=== PATIENT | male | born 1955 | race Caucasian/White ===

== ENCOUNTER 2021-06-27 01:24 | Day surgery (SDC) | payer OTHER, SELFPAY ==
[2021-06-16 15:11] VITALS: BMI 23.5
[2021-06-27 07:40] VITALS: BP 122/75; PULSE 78; RESP 18; TEMP 36; O2SAT 97; BMI 22.2
[2021-06-27] MEDS: LACTATED RINGERS 1,000 ML 150 ML IV CONT (08:05)
--- NOTE | 2021-06-27 08:48 | PM.HPGS ---
History of Present Illness History of Present Illness Consent: Risks, benefits, and alternatives have been discussed and questions answered. Patient agrees to proceed with procedure. Chief complaint: neoplasm screening Narrative: Jules Montano is a 65 year old male here for screening colonoscopy, last one about 15 years ago. Review of Systems Constitutional: Constitutional: Denies headache(s) and Denies weakness Eyes: Eyes: Denies blurry vision ENT: Reports Normal hearing present, Denies headache(s) and Denies neck pain Cardiovascular: Cardiovascular: Denies chest pain and Denies dyspnea Respiratory: Respiratory: Denies dyspnea Gastrointestinal: Gastrointestinal: Reports no additional gastrointestinal complaints Genitourinary: Genitourinary: Denies dysuria Musculoskeletal: Musculoskeletal: Denies neck pain Integumentary/Breasts: Skin/Breast: Denies dry skin Neurologic: Reports Normal hearing present, Denies headache(s) and Denies weakness Psychiatric: Psychiatric: Denies anxiety Endocrine: Endocrine: Denies change in body appearance Hematologic/Lymphatic: Hematologic/Lymphatic: Denies easy bleeding Allergic/Immunologic: Allergic/Immunologic: Denies urticaria PMFSH Past Medical History Medical History (Updated 06/27/21 @ 08:49 by Jose R Louis MD) Colon cancer screening Social History Social History Smoking status: Current some day smoker Tobacco type: cigarettes Alcohol intake: current Drinks per week: 14 Substance use: never Substance use type: does not use Living arrangements: with family Spiritual care concerns: No Meds Home Medications and Allergies Home Medications Medication Instructions Recorded Confirmed Type diclofenac sodium 75 mg PO DAILY 06/16/21 06/27/21 History lorazepam 1 mg PO DAILY 06/16/21 06/27/21 History sertraline 100 mg PO DAILY 06/16/21 06/27/21 History Allergies Allergy/AdvReac Type Severity Reaction Status Date / Time Sulfa (Sulfonamide Allergy Unknown Verified 06/27/21 07:50 Antibiotics) Vital Signs Vital Signs - 24 hr 06/27/21 07:40 Temperature 96.8 F L Pulse Rate 78 Respiratory Rate 18 Blood Pressure 122/75 Pulse Oximetry 97 Exam Const: General: comfortable and no acute distress HENMT: General nose exam: Normal nares present Eyes: General: appearance normal, both eyes and all related structures Neck: Neck: no JVD Resp: Auscultation: clear to auscultation bilaterally Cardio: Rate: regular rate Rhythm: regular rhythm GI: Inspection: non-distended GI Palp: Yes Soft to palpation Skin: General skin exam: normal color Neuro: General: gait normal Speech: normal speech Extrem: General: normal to inspection Psych: Mental Status: mental status grossly normal Assessment and Plan Assessment and plan (1) Colon cancer screening: Code(s): Z12.11 - Encounter for screening for malignant neoplasm of colon Status: Acute Assessment and Plan: colonoscopy
--- NOTE | 2021-06-27 08:54 | WPDANESEPPF ---
Anes - Initial Pre Proc Eval Procedure: Operation Date: 06/27/21 09:00 Proposed Procedures p Screening Colonoscopy - Jose R Louis MD Date/Time: 06/27/21 08:54 Surgeon: Jose R Louis MD Pre Op Diagnosis: neoplasm screening Patient Data Age: 65 Gender: M Height: 1.7 m Weight: 64.5 kg Last Vital Signs Temp 96.8 F L 06/27/21 07:40 Pulse 78 06/27/21 07:40 Resp 18 06/27/21 07:40 BP 122/75 06/27/21 07:40 Pulse Ox 97 06/27/21 07:40 Allergies Allergy/AdvReac Type Severity Reaction Status Date / Time Sulfa (Sulfonamide Allergy Unknown Verified 06/27/21 07:50 Antibiotics) Home Medications Medication Instructions Recorded Confirmed Type diclofenac sodium 75 mg PO DAILY 06/16/21 06/27/21 History lorazepam 1 mg PO DAILY 06/16/21 06/27/21 History sertraline 100 mg PO DAILY 06/16/21 06/27/21 History Patient hx anesthesia problems: none Family hx anesthesia problems: none Results Review: All pre-operative results and documents have been reviewed as part of the pre-operative evaluation. [facility] Past Medical History Medical History (Updated 06/27/21 @ 08:49 by Jose R Louis MD) Colon cancer screening Social History Social History Smoking status: Current some day smoker Tobacco type: cigarettes Alcohol intake: current Drinks per week: 14 Substance use: never Substance use type: does not use Living arrangements: with family Spiritual care concerns: No Anes - Eval Final PreProcedure Day of Procedure 06/27/21 08:54 Patient weight: normal Heart: regular rate and rhythm Lungs: clear to auscultation Airway: Mallampati scale class II Neurological: alert and oriented Last oral intake: >/= 8 hours ASA classification: II Emergent: no Anesthetic plan: proceed Anesthesia type and monitoring: general GIVS and standard monitoring Results Review: All pre-operative results and documents have been reviewed as part of the pre-operative evaluation. Informed Consent: The patient's anesthetic plan and its attendant risks and benefits were discussed with the patient/family/POA. Questions were solicited and answers provided to the satisfaction of the patient/family/POA.
[2021-06-27 09:10] VITALS: BP 98/64; PULSE 65; RESP 16; O2SAT 97
[2021-06-27 09:20] VITALS: BP 111/77; PULSE 60; RESP 21; O2SAT 98
[2021-06-27 09:30] VITALS: BP 115/76; PULSE 57; RESP 17; O2SAT 99
== END 2021-06-27 09:40 | disposition home or self-care (01) ==
PROVIDERS: PCP Family Medicine Adolescent Medicine; Visit Provider Internal Medicine Gastroenterology
PROC: 0DJD8ZZ Inspection of Lower Intestinal Tract, Via Natural or Artificial Opening Endoscopic (ICD-10-PCS; CPT 45378; principal; 2021-06-27 09:00)
DX: Z12.11 Encounter for screening for malignant neoplasm of colon (principal); K57.30 Diverticulosis of large intestine without perforation or abscess without bleeding; K64.8 Other hemorrhoids; F17.210 Nicotine dependence, cigarettes, uncomplicated
CPT/HCPCS: 45378; J2704; J7120

== ENCOUNTER → 2021-12-27 16:37 | Outpatient (CLI) | payer OTHER, SELFPAY ==
--- NOTE | ~2021-12-27 | XR_ITS ---
EXAMINATION: XR chest 2V 12/27/2021 16:49 INDICATION: Cough PROCEDURE: 2 view chest COMPARISON: No prior studies for comparison. FINDINGS: The lungs are clear. The cardiomediastinal silhouette is within normal limits. There are no pleural effusions. There is no pneumothorax suspected. Small left pleural effusion. The lungs ar e hyperinflated which is consistent with, but not diagnostic of chronic obstructive pulmonary disease . IMPRESSION: 1: Small left pleural effusion. Reviewed, dictated and finalized at location A.
== END ==
PROVIDERS: PCP Family Medicine Adolescent Medicine; Visit Provider Physician Assistant
DX: R05.9 Cough, unspecified (principal); J90 Pleural effusion, not elsewhere classified
CPT/HCPCS: 71046

== ENCOUNTER 2023-10-16 11:23 | Outpatient (CLI) | payer MEDICARE, SELFPAY ==
--- NOTE | ~2023-10-16 | XR_ITS ---
Clinical Indication: Cough PA and lateral views of the chest: Comparison: 12/27/2021 Findings: The lungs are clear, without evidence of focal consolidation or pleural effusion. Stable ca lcified right hilar lymph nodes. Cardiomediastinal silhouette is within normal limits. Bones and soft tissues are unremarkable. Impression: No acute abnormality. Reviewed, dictated and finalized at location . MANAGER Impression: No acute abnormality.
== END 2023-10-16 11:24 ==
PROVIDERS: PCP Family Medicine Adolescent Medicine; Visit Provider Family Medicine Adolescent Medicine
DX: R05.9 Cough, unspecified (principal); R06.02 Shortness of breath; Z87.891 Personal history of nicotine dependence
CPT/HCPCS: 71046

== ENCOUNTER 2024-06-29 08:41 | Outpatient (CLI) | payer MEDICARE, SELFPAY ==
--- NOTE | ~2024-06-29 | CT_ITS ---
EXAMINATION: CT lung screening DATE: 06/29/2024 08:55 INDICATION: Z87.891 - Personal history of nicotine dependence TECHNIQUE: Computed tomography (CT) of the chest was performed without intravenous contrast. Addition al 3D reconstructions utilizing coronal maximum intensity projection (MIP) were performed. Automated exposure control and iterative reconstruction technique were employed. The dose-length product was 88 .63 mGy-cm. COMPARISON: None FINDINGS: There are couple small calcified pulmonary nodules in the right middle and left lower lobes along wit h calcified right hilar lymph nodes consistent with old granulomatous disease. Multiple additional sm all noncalcified pulmonary nodules scattered throughout both lungs the largest measuring 4 mm along t he left major fissure. No pneumonia, pulmonary edema or pleural effusion. Heart size is normal. Small amount of atherosclerotic coronary artery calcific location. No pericardial effusion. Thoracic aorta is normal in caliber. No pathologically enlarged thoracic lymphadenopathy. Visualized upper abdomen is unremarkable. Moderate thoracic spondylosis. IMPRESSION: 1. Lung-RADS category 2: Benign appearance or behavior. Continue annual screening with noncontrast lo w-dose chest CT in 12 months. Reviewed, dictated and finalized at location B. NESS ANALYTICS ANALYST IMPRESSION: 1. Lung-RADS category 2: Benign appearance or behavior. Continue annual screeni ng with noncontrast low-dose chest CT in 12 months.
== END 2024-06-29 08:42 | disposition home or self-care (01) ==
LOC: MICIMG 08:42
PROVIDERS: PCP Family Medicine Adolescent Medicine; Visit Provider Family Medicine Adolescent Medicine
DX: Z12.2 Encounter for screening for malignant neoplasm of respiratory organs (principal); Z87.891 Personal history of nicotine dependence
CPT/HCPCS: 71271